=== PATIENT | female | born 1970 ===

== ENCOUNTER 2017-07-31 06:10 | Day surgery (SDC) | payer MEDICAID ==
[2017-07-25 10:05] VITALS: BMI 25.8
[2017-07-31 07:09] VITALS: RESP 14; O2SAT 97
[2017-07-31] MEDS ORDERED: Lidocaine 2% Inj (20ml) ONE (07:55)
[2017-07-31] MEDS ORDERED: Propofol 10 mg/ml Inj (20 ML) ONE ×2 (07:57→08:21)
[2017-07-31] MEDS ORDERED: Sodium Chloride 0.9% 1,000 ML IV SCH (08:45)
[2017-07-31 09:55] VITALS: BP 137/80; PULSE 70; TEMP 98
== END 2017-07-31 10:10 | disposition home or self-care (01) ==
LOC: ENDO 06:10
PROVIDERS: ATTEND Internal Medicine
DX: K59.09 Other constipation (principal); K64.8 Other hemorrhoids; K29.50 Unspecified chronic gastritis without bleeding; K44.9 Diaphragmatic hernia without obstruction or gangrene; R10.13 Epigastric pain; R14.0 Abdominal distension (gaseous)
CPT/HCPCS: 43239; 45378; 84703; 88305; 88312; 88342; J2704; J7030; J7040